=== PATIENT | male | born 1975 | race Caucasian/White ===

== ENCOUNTER 2017-07-09 05:05 | Emergency (ER) | payer OTHER ==
[~2017-07-09] VITALS: Ht 193 cm; Wt 83.9 kg
[2017-07-09 05:11] VITALS: BP_SYST 130
[2017-07-09 05:42] VITALS: BP_SYST 122
[2017-07-09] MEDS ORDERED: DIPHENHYDRAMINE HCL 25 MG CAPSULE PO ONE (05:45)
== END 2017-07-09 05:42 | disposition home or self-care (01) ==
LOC: SED 05:05
DX: J39.2 Other diseases of pharynx (principal); J45.909 Unspecified asthma, uncomplicated; Z85.828 Personal history of other malignant neoplasm of skin; Z90.49 Acquired absence of other specified parts of digestive tract
CPT/HCPCS: 99282; Q0163; 96372; 99285